=== PATIENT | female | born 1965 ===

== ENCOUNTER 2018-02-24 22:23 | Emergency (ER) | payer SELFPAY ==
[2018-02-24 22:32] VITALS: BP 106/59; PULSE 78; RESP 18; TEMP 98; O2SAT 99
--- NOTE | 2018-02-24 23:13 | ED PDOC ---
HPI: Head Injury Time Seen by Provider: 02/24/18 22:34 Chief Complaint (Nursing): Back Pain History Per: Patient Additional Complaint(s): Pt. states 2 days at while at work she was bent forward cleaning a wall when she stood up and struck the top of her head onto a metal object. Pt states she did not lose consciousness but had immediate pain at the site of impact. Pt. states the following day she developed R sided neck pain along with persistent headache. This morning neck pain worsened prompting ED visit. Has been taking OTC meds without relief. Denies LOC, N/V, numbness, tingling, previous TBI, anticoagulant use, other injury. Past Medical History Reviewed: Historical Data, Nursing Documentation, Vital Signs Vital Signs: Last Vital Signs Temp 98.0 F 02/24/18 22:30 Pulse 78 02/24/18 22:30 Resp 18 02/24/18 22:30 BP 106/59 L 02/24/18 22:30 Pulse Ox 99 02/24/18 22:30 - Family History Family History: States: No Known Family Hx - Home Medications Home Medications: Ambulatory Orders Medication Instructions Recorded Cyclobenzaprine [Cyclobenzaprine 10 mg PO Q8 PRN #10 tab 02/24/18 HCl] - Allergies Allergies/Adverse Reactions: Allergies Allergy/AdvReac Type Severity Reaction Status Date / Time No Known Allergies Allergy Verified 03/28/15 08:14 Review of Systems ROS Statement: Except As Marked, All Systems Reviewed And Found Negative Musculoskeletal: Positive for: Neck Pain Neurological: Positive for: Headache Physical Exam - Physical Exam Appears: Positive for: Well, Non-toxic, No Acute Distress Head Exam: Positive for: ATRAUMATIC, NORMAL INSPECTION, NORMOCEPHALIC Skin: Positive for: Normal Color, Warm. Negative for: Rash Eye Exam: Positive for: Normal appearance ENT: Positive for: Normal ENT Inspection Neck: Positive for: Normal, Painless ROM Back: Positive for: Normal Inspection, Muscle Spasm (R sided paracervical muscle spasm). Negative for: L CVA Tenderness, R CVA Tenderness, Vertebral Tenderness (including cervical spine) Extremity: Positive for: Normal ROM Neurologic/Psych: Positive for: Alert, Oriented, Gait (steady, unassisted). Negative for: Aphasia, Facial Droop - ECG O2 Sat by Pulse Oximetry: 99 - Progress ED Course And Treament: Tylenol 975mg PO, flexeril 10mg PO, CT head/cervical spine w/o contrast ordered. 2336 CT head w/o contrast: negative CT cervical spine w/o contrast: negative. On re-evaluation, pt. reports feeling much better. Headache and neck pain have improved. Advised to return to ED immediately if symptoms worsen. Disposition - Clinical Impression Clinical Impression: Head injury, Cervical sprain - Patient ED Disposition Is Patient to be Admitted: No - Disposition Referrals: [facility] [[facility]] Disposition: Routine/Home Disposition Time: 23:40 Condition: IMPROVED Additional Instructions: Follow up with your doctor for further evaluation. Return to ED immediately if symptoms worsen. Prescriptions: Cyclobenzaprine [Cyclobenzaprine HCl] 10 mg PO Q8 PRN #10 tab PRN Reason: Muscle Spasm Instructions: Minor Head Injury (DC), Neck Sprain (DC) Forms: [id number] (Citizen [place]) Print Language: BENINESE
--- NOTE | 2018-02-24 23:19 | CT ---
EXAM: CT Head Without Intravenous Contrast CLINICAL HISTORY: 52 years old, female; Pain; Headache; Additional info: Trauma TECHNIQUE: Axial computed tomography images of the head/brain without intravenous contrast. All CT scans at this facility use one or more dose reduction techniques, viz.: automated exposure control; ma/kV adjustment per patient size (including targeted exams where dose is matched to indication; i.e. head); or iterative reconstruction technique. Coronal and sagittal reformatted images were created and reviewed. COMPARISON: No relevant prior studies available. FINDINGS: Brain: Mild atrophy. No intracranial hemorrhage. No mass. No edema. Ventricles: No hydrocephalus. Bones/joints: No acute fracture. Soft tissues: Unremarkable. Sinuses: Scattered minimal mucosal thickening. Few small right maxillary retention cysts. Mastoid air cells: No mastoid effusion. Orbits: Unremarkable as visualized. IMPRESSION: 1. No intracranial hemorrhage. 2. Incidental/non-acute findings are described above.
--- NOTE | 2018-02-24 23:27 | CT ---
EXAM: CT Cervical Spine Without Intravenous Contrast CLINICAL HISTORY: 52 years old, female; Pain; Neck pain; Additional info: Trauma TECHNIQUE: Axial computed tomography images of the cervical spine without intravenous contrast. All CT scans at this facility use one or more dose reduction techniques, viz.: automated exposure control; ma/kV adjustment per patient size (including targeted exams where dose is matched to indication; i.e. head); or iterative reconstruction technique. Coronal and sagittal reformatted images were created and reviewed. COMPARISON: No relevant prior studies available. FINDINGS: Vertebrae: No acute fracture. Straightening of cervical spine. Degenerative anterolisthesis of upper thoracic spine. Discs/spinal canal/neural foramina: Early degenerative disc disease within mid cervical spine. Mild degenerative disc disease within lower cervical spine. No significant central canal stenosis. Neuroforaminal narrowing with mid and lower cervical spine. Soft tissues: Unremarkable. Sinuses: Few maxillary retention cysts. Lung apices: Minimal apical scarring. IMPRESSION: 1. No fracture. 2. Incidental/non-acute findings are described above.
== END 2018-02-24 23:45 | disposition home or self-care (01) ==
LOC: H.ER 22:23
DX: S09.90XA Unspecified injury of head, initial encounter (principal); S13.4XXA Sprain of ligaments of cervical spine, initial encounter; W22.8XXA Striking against or struck by other objects, initial encounter; Y99.0 Civilian activity done for income or pay

== ENCOUNTER 2018-09-04 21:14 | Emergency (ER) | payer SELFPAY ==
[2018-09-04 22:12] VITALS: BP 111/66; PULSE 73; RESP 16; TEMP 97.4; O2SAT 100
--- NOTE | 2018-09-04 23:32 | ED PDOC ---
HPI: General Adult Time Seen by Provider: 09/04/18 22:44 Chief Complaint (Nursing): Headache Chief Complaint (Provider): neck pain History Per: Patient History/Exam Limitations: no limitations Onset/Duration Of Symptoms: Hrs (7), Waxing/Waning Current Symptoms Are (Timing): Still Present Additional Complaint(s): 53 y/o female presents for evaluation of neck pain x 8 hours. Patient states pain worse with movement of head, and will sometimes feel a "shock" sensation to area. Denies headache, numbness/weakness upper extremities, vision changes. No medication taken for relief thus far. Patient states two weeks ago she had numbness on right side of nose and cheek, unknown if related. None at present Past Medical History Reviewed: Historical Data, Nursing Documentation, Vital Signs Vital Signs: Last Vital Signs Temp 97.4 F L 09/04/18 22:11 Pulse 73 09/04/18 22:11 Resp 16 09/04/18 22:11 BP 111/66 09/04/18 22:11 Pulse Ox 100 09/04/18 22:11 - Medical History PMH: No Chronic Diseases - Surgical History Surgical History: No Surg Hx - Family History Family History: States: No Known Family Hx - Living Arrangements Living Arrangements: With Family - Home Medications Home Medications: Ambulatory Orders Medication Instructions Recorded Cyclobenzaprine [Cyclobenzaprine 10 mg PO Q8 PRN #10 tab 02/24/18 HCl] Cyclobenzaprine [Cyclobenzaprine 10 mg PO BID PRN #14 tab 09/05/18 HCl] Naproxen [Naprosyn] 500 mg PO Q12 PRN #20 tablet 09/05/18 - Allergies Allergies/Adverse Reactions: Allergies Allergy/AdvReac Type Severity Reaction Status Date / Time No Known Allergies Allergy Verified 03/28/15 08:14 Review of Systems ROS Statement: Except As Marked, All Systems Reviewed And Found Negative Musculoskeletal: Positive for: Neck Pain Physical Exam - Reviewed Nursing Documentation Reviewed: Yes Vital Signs Reviewed: Yes - Physical Exam Appears: Positive for: Well, Non-toxic, No Acute Distress Head Exam: Positive for: ATRAUMATIC, NORMAL INSPECTION, NORMOCEPHALIC Skin: Positive for: Normal Color Eye Exam: Positive for: Normal appearance, EOMI, PERRL ENT: Positive for: Normal ENT Inspection Cardiovascular/Chest: Positive for: Regular Rate, Rhythm Respiratory: Positive for: Normal Breath Sounds Gastrointestinal/Abdominal: Positive for: Normal Exam Back: Positive for: Normal Inspection (FROM but with pain upon rotation, flexion/extension of neck), Muscle Spasm (b/l cspine paravertebral tenderness). Negative for: L CVA Tenderness, R CVA Tenderness, Vertebral Tenderness, Decreased ROM Extremity: Positive for: Normal ROM Neurologic/Psych: Positive for: Alert, Oriented (x3). Negative for: Motor/Sensory Deficits - ECG O2 Sat by Pulse Oximetry: 100 - Progress ED Course And Treament: Toradol IM, flexeril PO On re-eval, patient states she is feeling better and would like to be discharged Patient educated on findings, discharged with rx Naproxen, FLexeril Advised warm compresses Follow up PMD within 2-3 days Return precautions given Disposition - Clinical Impression Clinical Impression: Neck muscle spasm - Patient ED Disposition Is Patient to be Admitted: No Counseled Patient/Family Regarding: Diagnosis, Need For Followup, Rx Given - Disposition Referrals: [facility] [Outside] Disposition: Routine/Home Disposition Time: 00:30 Condition: IMPROVED Prescriptions: Cyclobenzaprine [Cyclobenzaprine HCl] 10 mg PO BID PRN #14 tab PRN Reason: Muscle Spasm Naproxen [Naprosyn] 500 mg PO Q12 PRN #20 tablet PRN Reason: Pain, Moderate (4-7) Instructions: Muscle Spasms (DC) Forms: [facility] ED School/Work Excuse
== END 2018-09-05 00:30 | disposition home or self-care (01) ==
LOC: H.ER 21:14
DX: M62.838 Other muscle spasm (principal)